=== PATIENT | male | born 1990 | race Two or more races ===

== ENCOUNTER 2020-05-23 00:48 | Emergency (ER) | payer OTHER, SELFPAY ==
[~2020-05-23] VITALS: Ht 182.9 cm; Wt 80.0 kg
[2020-05-23 01:07] VITALS: BP 128/78
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
== END 2020-05-23 01:24 | disposition home or self-care (01) ==
LOC: ED 01:00
DX: R45.851 Suicidal ideations (principal)
CPT/HCPCS: 99283